=== PATIENT | male | born 1975 | race Caucasian/White ===

== ENCOUNTER 2025-04-08 08:38 | Outpatient (OUT) | payer SELFPAY | END 2025-04-08 08:39 | disposition home or self-care (01) | LOC: PST 08:39 | PROVIDERS: Visit Provider Surgery | DX: Z01.818 Encounter for other preprocedural examination (principal); Z12.11 Encounter for screening for malignant neoplasm of colon ==

== ENCOUNTER 2025-04-23 06:25 | Day surgery (SDC) | payer BC, SELFPAY ==
--- NOTE | 2025-04-23 | OP_ITS ---
OPERATION DATE: 04/23/2025 PREOPERATIVE DIAGNOSIS: Colorectal screening. POSTOPERATIVE DIAGNOSIS: A 2 mm rectal polyp as well as sigmoid diverticulosis. PROCEDURE: Colonoscopy to cecum with cold forceps polypectomy x1 for a rectal polyp. SURGEON: Niles Villafana M.D. ANESTHESIA: Monitored anesthesia care. ESTIMATED BLOOD LOSS: Less than 1 mL. INDICATIONS AND CONSENT: Patient is a 49-year-old male who presents for colorectal screening. Indications, risks, benefits, alternatives of proceeding with colonoscopy were explained extensively to the patient, including the risks of bleeding, colon perforation or anesthetic complications. All of his questions were answered. Informed consent was obtained. PROCEDURE: Patient brought to the operating room, placed in the left lateral decubitus position. Monitored anesthesia care was provided. Rectal exam was performed which showed no masses or blood. The scope was inserted into the anal canal. Under direct visualization was advanced. It was advanced to the cecum where cecal markings were clearly identified. There was noted to be a good prep. Upon withdrawal of the scope, mucosal surfaces were carefully examined. There were no mass lesions or inflammatory changes. Within the sigmoid colon, there was moderate sigmoid diverticulosis without inflammatory changes or scarring. Within the upper rectum, there was noted to be a 2 mm sessile polyp that was removed with cold biopsy forceps with good hemostasis. The scope was retroflexed in the anal canal. There were some prominent rectal veins. No significant hemorrhoidal disease. The scope was then withdrawn. Patient tolerated procedure well, was sent to recovery room in good condition. Follow up colonoscopy likely in five years, but will depend on the pathology report. CC: Blu Harris M.D. KARLA
[2025-04-23 06:35] VITALS: BP 144/96; PULSE 64; TEMP 36.1; O2SAT 97; BMI 41.7
[2025-04-23 07:43] VITALS: BP 158/90; PULSE 58; TEMP 37; O2SAT 98
[2025-04-23 07:58] VITALS: BP 153/101; PULSE 50; O2SAT 98
[2025-04-23 08:13] VITALS: BP 157/96; PULSE 55; O2SAT 100
== END 2025-04-23 08:13 | disposition home or self-care (01) ==
LOC: SURGOUT 06:28
PROVIDERS: PCP Family Medicine; Visit Provider Surgery
PROC: (CPT 812; principal; 2025-04-23 07:30)
DX: Z12.11 Encounter for screening for malignant neoplasm of colon (principal); K57.30 Diverticulosis of large intestine without perforation or abscess without bleeding; K62.1 Rectal polyp; E66.01 Morbid (severe) obesity due to excess calories; Z68.41 Body mass index [BMI] 40.0-44.9, adult; Z87.891 Personal history of nicotine dependence; I73.9 Peripheral vascular disease, unspecified; K42.9 Umbilical hernia without obstruction or gangrene
CPT/HCPCS: 45380; J2704